=== PATIENT | male | born 1960 | race Caucasian/White ===

== ENCOUNTER 2021-02-25 12:56 | Emergency (ER) | payer OTHER ==
[2021-02-25 14:17] LABS: HEMOGLOBIN 15.6 gm/dl (14.0-17.5); RED BLOOD COUNT 4.65 M/UL (4.20-5.50); WHITE BLOOD COUNT 2.8 K/UL (4.5-11.0)
[2021-02-25 14:36] LABS: BUN/CREATININE RATIO 13 (0-10)
== END 2021-02-25 19:57 | disposition home or self-care (01) ==
LOC: ER1 12:56
PROVIDERS: Physician Assistant
DX: R11.2 Nausea with vomiting, unspecified (principal); I10 Essential (primary) hypertension; Z85.038 Personal history of other malignant neoplasm of large intestine; Z20.822 Contact with and (suspected) exposure to COVID-19
CPT/HCPCS: 80053; 85025; 96374; 99284; J1642; J2405; J7030; U0002

== ENCOUNTER → 2021-03-14 | Outpatient (CLI) | payer OTHER ==
[2021-03-14 10:16] LABS: HEMOGLOBIN 14.6 gm/dl (14.0-17.5); RED BLOOD COUNT 4.4 M/UL (4.20-5.50)
[2021-03-14 10:36] LABS: BUN/CREATININE RATIO 11 (0-10)
== END ==
LOC: OPSV 09:00
PROVIDERS: Internal Medicine Hematology & Oncology
DX: C79.51 Secondary malignant neoplasm of bone (principal); C18.0 Malignant neoplasm of cecum; D37.6 Neoplasm of uncertain behavior of liver, gallbladder and bile ducts; R59.0 Localized enlarged lymph nodes
CPT/HCPCS: 36591; 80053; 83735; 85027; 96360; 96361; J1642; J7030